=== PATIENT | male | born 1980 | race Caucasian/White ===

== ENCOUNTER 2017-11-20 09:14 | Emergency (ER) | payer OTHER ==
[2017-11-20] MEDS ORDERED: OXYMETAZOLINE HCL SPRAY 15 ML BOTTLE ONE (09:31)
== END 2017-11-20 10:07 | disposition home or self-care (01) ==
LOC: EDH 09:14
DX: R04.0 Epistaxis (principal)
CPT/HCPCS: 30901

== ENCOUNTER → 2024-12-21 | Outpatient (CLI) | payer BC ==
--- NOTE | 2024-12-22 10:00 | HMCIMG ---
Exam: Lumbar spine with flexion and extension, 4 views Reason: Low back pain. FINDINGS: AP view shows marked approximately 10 degrees dextroscoliosis epicentered mid lumbar spine. Neutral lateral view shows moderate to marked narrowing L4-5 with mild narrowing L5-S1. There are moderate degenerative changes in the facets. Flexion-extension views were obtained. There is limited range of motion. There is no subluxation on either flexion or extension views. IMPRESSION: 1. Moderate degenerative changes as described. 2. Normal vertebral body alignment, this does not change on flexion or extension views.
== END | disposition home or self-care (01) ==
LOC: RAH 10:30
PROVIDERS: ATTEND Physical Medicine & Rehabilitation
DX: M47.26 Other spondylosis with radiculopathy, lumbar region (principal); M48.07 Spinal stenosis, lumbosacral region; M41.86 Other forms of scoliosis, lumbar region; M25.471 Effusion, right ankle; L40.50 Arthropathic psoriasis, unspecified
CPT/HCPCS: 72114